=== PATIENT | male | born 1985 | race African-American/Black ===

== ENCOUNTER 2018-09-08 23:49 | Emergency (ER) | payer MEDICAID ==
[~2018-09-08] VITALS: Ht 172.7 cm; Wt 77.1 kg
[2018-09-08] MEDS ORDERED: KEPPRA1000 MG ORAL (23:55)
[2018-09-08] MEDS ORDERED: TRILEPTAL600 MG PO (23:56)
[2018-09-09] VITALS: BP 113/63
--- NOTE | 2018-09-09 00:08 | NUR ---
ED Nurse Note: Received report. Pt CARLA from street after claimimng to have seizure. Pt AAOx4, ambulatory, c/o headache 04/02. VSS. Pt says he is compliant with anti-seizure meds. Awaiting orders; will continue to monitor.
[2018-09-09 00:47] LABS: BASOPHILS % (AUTO) 1.4 % (0.0-2.0); EOSINOPHILS % (AUTO) 0.4 % (0.0-3.0); HEMATOCRIT 44.9 % (42.0-52.0); HEMOGLOBIN 15.2 G/DL (14.2-18.0); LYMPHOCYTES % (AUTO) 25.6 % (20.0-45.0); MEAN CORPUSCULAR VOLUME 91 FL (80-99); MONOCYTES % (AUTO) 10.5 % (1.0-10.0); NEUTROPHILS % (AUTO) 62.1 % (45.0-75.0); PLATELET COUNT 285 K/UL (150-450); RED BLOOD COUNT 4.95 M/UL (4.70-6.10); RED CELL DISTRIBUTION WIDTH 11.7 % (11.6-14.8); WHITE BLOOD COUNT 6.3 K/UL (4.8-10.8)
[2018-09-09 00:58] LABS: ANION GAP 7 mmol/L (5-15); BLOOD UREA NITROGEN 16 mg/dL (7-18); CALCIUM 8.9 MG/DL (8.5-10.1); CARBON DIOXIDE 28 MMOL/L (21-32); CHLORIDE 106 MMOL/L (98-107); CREATININE 1.2 MG/DL (0.55-1.30); POTASSIUM 3.8 MMOL/L (3.5-5.1); SODIUM 141 MMOL/L (136-145)
[2018-09-09 01:03] LABS: ALANINE AMINOTRANSFERASE 25 U/L (12-78); ALBUMIN 4.2 G/DL (3.4-5.0); ALBUMIN/GLOBULIN RATIO 1.2 (1.0-2.7); ALKALINE PHOSPHATASE 76 U/L (46-116); ASPARTATE AMINO TRANSFERASE 19 U/L (15-37); BILIRUBIN,TOTAL 0.2 MG/DL (0.2-1.0)
[2018-09-09 02:00] VITALS: BP 115/62
[2018-09-09] MEDS ORDERED: levETIRAcetam 1,000mg/NS100ml 100 ML IVPB ONE (02:00)
--- NOTE | 2018-09-09 02:10 | NUR ---
ED Nurse Note: Pt asleep, resting in bed. No distress noted. Will continue to monitor.
[2018-09-09] MEDS ORDERED: KEPPRA750 MG ORAL (02:32)
[2018-09-09 02:54] VITALS: BP 115/62
--- NOTE | 2018-09-09 04:59 | NUR ---
ED Nurse Note: Pt cleared for discharge. Pt now awake after resting, AAOx4. NAD. VSS. Ambulatory, given a jacket, water and list of free clinics although pt stated he sees PMD at [facility]. Pt states he has a safe place to go via bus. IV and ID band removed. Pt ambulated out with all belongings and prescriptions.
--- NOTE | 2018-10-12 22:56 | Emergency Room Report ---
History of Present Illness General Chief Complaint: General Complaint Source: Patient, EMS Present Illness HPI Patient is a 32-year-old male presented after increased seizure activity. Patient had recently been having seizures at home. He denies any recent fever. He reportedly had been taking Keppra 750 twice daily.Patient denies any abdominal pain. He had not been vomiting. Allergies: Coded Allergies: No Known Allergies (Unverified , 09/09/18) Patient History Past Medical History: see triage record Reviewed Nursing Documentation: PMH: Agreed; PSxH: Agreed Nursing Documentation-PMH Hx Seizures: Yes Review of Systems All Other Systems: negative except mentioned in HPI Physical Exam Sp02 EP Interpretation: reviewed, normal General Appearance: normal inspection, well appearing, no apparent distress, alert, GCS 15 Head: atraumatic ENT: normal ENT inspection, hearing grossly normal, normal voice Neck: normal inspection, full range of motion, supple, no bony tend Respiratory: normal inspection, lungs clear, normal breath sounds, no respiratory distress, no retraction, no wheezing Cardiovascular #1: regular rate, rhythm, no edema Gastrointestinal: normal inspection, normal bowel sounds, non tender, soft, no guarding, no hernia Genitourinary: no CVA tenderness Musculoskeletal: normal inspection, back normal, normal range of motion Neurologic: normal inspection, alert, oriented x3, responsive, community health worker III-XII nml as tested, speech normal Psychiatric: normal inspection, judgement/insight normal, mood/affect normal Skin: normal inspection, normal color, no rash Medical Decision Making Diagnostic Impression: Primary Impression: Seizure ER Course Patient presented for recent seizure. Differential diagnosis include was not limited to subtherapeutic anticonvulsant level, hyponatremia, among others. Because of complexity of patient's case laboratory testing and imaging studies were ordered. Patient's laboratory testing was unremarkable. He was givenPrescription for Keppra Patient states that he takes Keppra and Trileptal. Labs Test 09/09/18 00:30 White Blood Count 6.3 K/UL (4.8-10.8) Red Blood Count 4.95 M/UL (4.70-6.10) Hemoglobin 15.2 G/DL (14.2-18.0) Hematocrit 44.9 % (42.0-52.0) Mean Corpuscular Volume 91 FL (80-99) Mean Corpuscular Hemoglobin 30.7 PG (27.0-31.0) Mean Corpuscular Hemoglobin Concent 33.9 G/DL (32.0-36.0) Red Cell Distribution Width 11.7 % (11.6-14.8) Platelet Count 285 K/UL (150-450) Mean Platelet Volume 7.2 FL (6.5-10.1) Neutrophils (%) (Auto) 62.1 % (45.0-75.0) Lymphocytes (%) (Auto) 25.6 % (20.0-45.0) Monocytes (%) (Auto) 10.5 % (1.0-10.0) Eosinophils (%) (Auto) 0.4 % (0.0-3.0) Basophils (%) (Auto) 1.4 % (0.0-2.0) Sodium Level 141 MMOL/L (136-145) Potassium Level 3.8 MMOL/L (3.5-5.1) Chloride Level 106 MMOL/L (98-107) Carbon Dioxide Level 28 MMOL/L (21-32) Anion Gap 7 mmol/L (5-15) Blood Urea Nitrogen 16 mg/dL (7-18) Creatinine 1.2 MG/DL (0.55-1.30) Estimat Glomerular Filtration Rate > 60 mL/min (>60) Glucose Level 112 MG/DL (74-106) Calcium Level 8.9 MG/DL (8.5-10.1) Total Bilirubin 0.2 MG/DL (0.2-1.0) Aspartate Amino Transf (AST/SGOT) 19 U/L (15-37) Alanine Aminotransferase (ALT/SGPT) 25 U/L (12-78) Alkaline Phosphatase 76 U/L (46-116) Total Protein 7.8 G/DL (6.4-8.2) Albumin 4.2 G/DL (3.4-5.0) Globulin 3.6 g/dL Albumin/Globulin Ratio 1.2 (1.0-2.7) Status: improved Disposition: HOME, SELF-CARE Condition: Stable Scripts Levetiracetam (KEPPRA) 750 Mg Tablet 750 MG ORAL DAILY, #30 TAB Prov: Gonazlo Betancourt MD 09/09/18 Patient Instructions: Seizure, Adult Gonzalo Betancourt MD Oct 12, 2018 22:56
== END 2018-09-09 02:54 | disposition home or self-care (01) ==
LOC: EDBD 23:49 → EMR 09-09 00:20
DX: G40.909 Epilepsy, unspecified, not intractable, without status epilepticus (principal)
CPT/HCPCS: 36415; 80053; 82962; 85025; 96374; 99284; J1953

== ENCOUNTER 2018-10-17 08:49 | Emergency (ER) | payer MEDICAID ==
[~2018-10-17] VITALS: Ht 172.7 cm; Wt 75.3 kg
[2018-10-17 08:48] VITALS: BP 135/75
[~2018-10-17 08:49] MED LIST: KEPPRA1000 MG ORAL; KEPPRA500 M4 ORAL; KEPPRA750 MG ORAL; TRILEPTAL600 MG PO; VENTOLIN HFA18 GM INH
--- NOTE | 2018-10-17 08:55 | NUR ---
ED Nurse Note: patient was brought by RA from the street, per bypass people patient had 2 min seizure. he fell on the ground, hit his head while seizing on the ground, pt. has laceration oh his left forehead around 1cm length. No active bleeding eric. AAO x 3, skin is dry, intact, warm to touch. VSS at this time, pt. has nonlabored breathing, O2 sat is 96%. patient was connected to the monitor, seizure precautions applied. will continue to monitor
[2018-10-17] MEDS ORDERED: LaMICtal 150mg tab ORAL ONE (09:15)
[2018-10-17] MEDS ORDERED: Norco 5mg/325mg tab ORAL ONE (09:15)
--- NOTE | 2018-10-17 09:18 | Emergency Room Report ---
History of Present Illness General Chief Complaint: Seizure Source: Patient, EMS Present Illness HPI 32-year-old male status post seizure and his brother's car. Complains of a headache. He states he gets breakthrough seizures. He did not take his Lamictal or Keppra this morning. He states that he is usually compliant. He states that he gets occasional breakthrough seizures every few months. He states he had a brief loss of consciousness. Allergies: Coded Allergies: No Known Allergies (Unverified , 09/09/18) Patient History Past Medical History: none Nursing Documentation-PMH Hx Seizures: Yes Review of Systems All Other Systems: negative except mentioned in HPI Physical Exam Vital Signs Date Time Temp Pulse Resp B/P (MAP) Pulse Ox O2 Delivery O2 Flow Rate FiO2 10/17/18 08:38 98.4 90 18 128/94 98 Room Air Head: normocephalic, atraumatic ENT: hearing grossly normal, normal voice Neck: full range of motion, supple Respiratory: no respiratory distress, speaking full sentences Musculoskeletal: other - patient with chronic right shoulder pain. Neurologic: alert, oriented x3, pattern fitter III-XII nml as tested Medical Decision Making Diagnostic Impression: Primary Impression: Epileptic seizure, generalized ER Course Patient was examined multiple times. The patient has no headache at this time. He was given pain medication. He is neurologically intact. He does have decreased range of motion the right shoulder which she is due for surgery in November. The patient is currently at baseline. He does have Lamictal and Keppra. And he does not require any prescriptions. The patient will be discharged home. EKG Diagnostic Results EKG Time: 09:26 Rate: normal Rhythm: NSR ST Segments: no acute changes ASA given to the pt in ED: No Last Vital Signs Date Time Temp Pulse Resp B/P (MAP) Pulse Ox O2 Delivery O2 Flow Rate FiO2 10/17/18 08:48 74 20 Room Air 10/17/18 08:48 98.0 135/75 96 Status: improved Disposition: HOME, SELF-CARE Condition: Stable Patient Instructions: Seizure, Adult LOLLY LUNA Oct 17, 2018 09:18
[2018-10-17 11:09] VITALS: BP 136/85
--- NOTE | 2018-10-17 11:35 | NUR ---
ED Nurse Note: Pt urinated without difficulty at this time. Laying comfortably on bed. VSS, no sign of acute distress.
--- NOTE | 2018-10-17 11:54 | NUR ---
ED Nurse Note: RN called taxi voucher for pt.
[2018-10-17 11:56] VITALS: BP 125/80
--- NOTE | 2018-10-17 11:59 | NUR ---
ED Nurse Note: patient was DC home, ambulatory, VSS at this time, patient has nonlabored respiration, AAO x 4, all belongings were given to the patient. patient was educated, verbalized understanding.
== END 2018-10-17 11:56 | disposition home or self-care (01) ==
LOC: EDBD 08:49 → EMR 09:00
DX: G40.409 Other generalized epilepsy and epileptic syndromes, not intractable, without status epilepticus (principal); Z91.14 Patient's other noncompliance with medication regimen
CPT/HCPCS: 80299; 99283

== ENCOUNTER 2018-12-05 06:25 | Inpatient (IN) | payer MEDICAID ==
[~2018-12-05] VITALS: Ht 175.3 cm; Wt 90.7 kg
[2018-12-05 06:27] VITALS: BP 131/82
[2018-12-05] MEDS ORDERED: levETIRAcetam 500 MG in D5W 110 ML IV ONE (06:30)
--- NOTE | 2018-12-05 06:42 | Emergency Room Report ---
History of Present Illness General Chief Complaint: Seizure Source: Patient Present Illness HPI Patient is a 33-year-old male brought in by EMS after a witnessed seizure. Patient prior history of seizure disorder. Patient reports taking Keppra 1500 mg twice a day. He states he took his normal dose last night. Patient reports having a mild headache consistent with his previous. He states he has similar headaches after seizures usually. He states he normally has a seizure once a month. He denies any fever. He denies any recent illness. Allergies: Coded Allergies: No Known Allergies (Unverified , 09/09/18) Patient History Past Medical History: see triage record Reviewed Nursing Documentation: PMH: Agreed; PSxH: Agreed Nursing Documentation-PMH Hx Seizures: Yes Review of Systems All Other Systems: negative except mentioned in HPI Physical Exam Vital Signs Date Time Temp Pulse Resp B/P (MAP) Pulse Ox O2 Delivery O2 Flow Rate FiO2 12/05/18 06:26 98.8 100 18 151/72 98 Room Air Sp02 EP Interpretation: reviewed, normal General Appearance: normal inspection, well appearing, no apparent distress, alert, GCS 15, non-toxic Head: atraumatic ENT: normal ENT inspection, hearing grossly normal, normal voice Neck: normal inspection, full range of motion, supple, no bony tend Respiratory: normal inspection, lungs clear, normal breath sounds, no respiratory distress, no retraction, no wheezing Cardiovascular #1: regular rate, rhythm, no edema Gastrointestinal: normal inspection, normal bowel sounds, non tender, soft, no guarding, no hernia Genitourinary: no CVA tenderness Musculoskeletal: normal inspection, back normal, normal range of motion Neurologic: normal inspection, alert, oriented x3, responsive, meat hostess III-XII nml as tested, speech normal Psychiatric: normal inspection, judgement/insight normal, mood/affect normal Skin: normal inspection, normal color, no rash Medical Decision Making Diagnostic Impression: Primary Impression: Seizure Additional Impression: Seizure disorder ER Course Patient presented for seizure. Differential diagnosis included electrolyte abnormality, alcohol withdrawal, medication noncompliance, neurocysticercosis, electrolyte abnormality, mass lesion, intracranial hemorrhage among others.Patient's laboratory testing was notable for metabolic acidosis consistent with recent seizure. Patient was noted to have reportedly been compliant with his medications. He was loaded with IV Keppra.Patient with had witnessed episode of convulsions in the emergency department. Patient was noted to have some postictal agitation and was placed in restraints and was given IV Ativan.Patient was noted to have urinated during the seizure. Patient was noted to have some change to a cardiac rhythm during a seizure activity. These appear to be perfusing rhythm. DMV report will be made due to patient's recent convulsions. Dr. Mario Harris was contacted for inpatient management. Labs Test 12/05/18 06:40 White Blood Count 8.3 K/UL (4.8-10.8) Red Blood Count 5.16 M/UL (4.70-6.10) Hemoglobin 15.3 G/DL (14.2-18.0) Hematocrit 48.3 % (42.0-52.0) Mean Corpuscular Volume 94 FL (80-99) Mean Corpuscular Hemoglobin 29.7 PG (27.0-31.0) Mean Corpuscular Hemoglobin Concent 31.7 G/DL (32.0-36.0) Red Cell Distribution Width 12.6 % (11.6-14.8) Platelet Count 274 K/UL (150-450) Mean Platelet Volume 6.6 FL (6.5-10.1) Neutrophils (%) (Auto) 39.6 % (45.0-75.0) Lymphocytes (%) (Auto) 50.0 % (20.0-45.0) Monocytes (%) (Auto) 6.8 % (1.0-10.0) Eosinophils (%) (Auto) 2.1 % (0.0-3.0) Basophils (%) (Auto) 1.5 % (0.0-2.0) Urine Color Pale yellow Urine Appearance Clear Urine pH 5 (4.5-8.0) Urine Specific [place] 1.015 (1.005-1.035) Urine Protein 2+ (NEGATIVE) Urine Glucose (UA) Negative (NEGATIVE) Urine Ketones Negative (NEGATIVE) Urine Blood 2+ (NEGATIVE) Urine Nitrite Negative (NEGATIVE) Urine Bilirubin Negative (NEGATIVE) Urine Urobilinogen Normal MG/DL (0.0-1.0) Urine Leukocyte Esterase Negative (NEGATIVE) Urine RBC 0-2 /HPF (0 - 0) Urine WBC 0 /HPF (0 - 0) Urine Squamous Epithelial Cells Occasional /LPF Urine Bacteria Occasional /HPF (NONE) Sodium Level 139 MMOL/L (136-145) Potassium Level 3.8 MMOL/L (3.5-5.1) Chloride Level 103 MMOL/L (98-107) Carbon Dioxide Level 18 MMOL/L (21-32) Anion Gap 18 mmol/L (5-15) Blood Urea Nitrogen 13 mg/dL (7-18) Creatinine 1.3 MG/DL (0.55-1.30) Estimat Glomerular Filtration Rate > 60 mL/min (>60) Glucose Level 119 MG/DL (74-106) Calcium Level 8.4 MG/DL (8.5-10.1) Total Bilirubin 0.3 MG/DL (0.2-1.0) Aspartate Amino Transf (AST/SGOT) 14 U/L (15-37) Alanine Aminotransferase (ALT/SGPT) 23 U/L (12-78) Alkaline Phosphatase 69 U/L (46-116) Troponin I 0.002 ng/mL (0.000-0.056) Total Protein 7.8 G/DL (6.4-8.2) Albumin 4.1 G/DL (3.4-5.0) Globulin 3.7 g/dL Albumin/Globulin Ratio 1.1 (1.0-2.7) Urine Opiates Screen Negative (NEGATIVE) Urine Barbiturates Screen Negative (NEGATIVE) Phencyclidine (PCP) Screen Negative (NEGATIVE) Urine Amphetamines Screen Negative (NEGATIVE) Urine Benzodiazepines Screen Negative (NEGATIVE) Urine Cocaine Screen Negative (NEGATIVE) Urine Marijuana (THC) Screen Positive (NEGATIVE) EKG Diagnostic Results Rate: normal - 74 Rhythm: NSR ST Segments: no acute changes Last Vital Signs Date Time Temp Pulse Resp B/P (MAP) Pulse Ox O2 Delivery O2 Flow Rate FiO2 12/05/18 06:26 98.8 100 18 151/72 98 Room Air Status: improved Disposition: ADMITTED INPATIENT Condition: Gonzalo Jimenez MD Dec 05, 2018 06:42
[2018-12-05] MEDS ORDERED: levETIRAcetam 1,000mg/NS100ml 100 ML IVPB ONE (06:45)
[2018-12-05] MEDS ORDERED: levETIRAcetam 500mg/NS100ml 100 ML IVPB ONE (06:45)
[2018-12-05 06:56] LABS: APPEARANCE,URINE CLEAR; BILIRUBIN, URINE NEGATIVE (NEGATIVE); COLOR,URINE PALE YELLOW; GLUCOSE, URINE (UA) NEGATIVE (NEGATIVE); KETONES,URINE NEGATIVE (NEGATIVE); LEUKOCYTE ESTERASE ,URINE NEGATIVE (NEGATIVE); NITRITE,URINE NEGATIVE (NEGATIVE); PH,URINE 5 (4.5-8.0); PROTEIN,URINE 2+ (NEGATIVE); UROBILINOGEN,URINE NORMAL MG/DL (0.0-1.0)
[2018-12-05 07:00] LABS: BASOPHILS % (AUTO) 1.5 % (0.0-2.0); EOSINOPHILS % (AUTO) 2.1 % (0.0-3.0); HEMATOCRIT 48.3 % (42.0-52.0); HEMOGLOBIN 15.3 G/DL (14.2-18.0); MEAN CORPUSCULAR VOLUME 94 FL (80-99); MONOCYTES % (AUTO) 6.8 % (1.0-10.0); NEUTROPHILS % (AUTO) 39.6 % (45.0-75.0); PLATELET COUNT 274 K/UL (150-450); RED BLOOD COUNT 5.16 M/UL (4.70-6.10); RED CELL DISTRIBUTION WIDTH 12.6 % (11.6-14.8); WHITE BLOOD COUNT 8.3 K/UL (4.8-10.8)
[2018-12-05 07:03] LABS: ANION GAP 18 mmol/L (5-15); BLOOD UREA NITROGEN 13 mg/dL (7-18); CALCIUM 8.4 MG/DL (8.5-10.1); CARBON DIOXIDE 18 MMOL/L (21-32); CHLORIDE 103 MMOL/L (98-107); CREATININE 1.3 MG/DL (0.55-1.30); POTASSIUM 3.8 MMOL/L (3.5-5.1); SODIUM 139 MMOL/L (136-145)
[2018-12-05 07:10] LABS: ALANINE AMINOTRANSFERASE 23 U/L (12-78); ALBUMIN 4.1 G/DL (3.4-5.0); ALBUMIN/GLOBULIN RATIO 1.1 (1.0-2.7); ALKALINE PHOSPHATASE 69 U/L (46-116); ASPARTATE AMINO TRANSFERASE 14 U/L (15-37); BILIRUBIN,TOTAL 0.3 MG/DL (0.2-1.0)
[2018-12-05] MEDS ORDERED: LORazepam Inj 2mg/ml 1ml ONE (08:05)
[2018-12-05] MEDS ORDERED: LORazepam Inj 2mg/ml 1ml IV ONE (08:15)
[2018-12-05 08:45] VITALS: BP 112/59
[2018-12-05 11:05] VITALS: BP 143/90
[2018-12-05 12:00] VITALS: BP 135/83
[2018-12-05] MEDS ORDERED: LORazepam Inj 2mg/ml 1ml IV PRN (12:15)
[2018-12-05 16:00] VITALS: BP 126/66
--- NOTE | 2018-12-05 18:19 | History & Physical ---
History and Physical History & Physicial History and Physical HPI Patient is a 33-year-old male admitted after a witnessed seizure. Patient prior history of seizure disorder. Patient reports taking Keppra 500 mg twice a day. He states he took his normal dose last night. Patient reports having a mild headache consistent with his previous. He states he has similar headaches after seizures usually. He states he normally has a seizure once a month. He denies any fever. He denies any recent illness. Allergies: No Known Allergies Past Medical History: Seizures All Other Systems: negative except mentioned in HPI Physical Exam Vital Signs Noted Date Time Temp Pulse Resp B/P (MAP) Pulse Ox O2 Delivery O2 Flow Rate FiO2 12/05/18 06:26 98.8 100 18 151/72 98 Room Air General Appearance: normal inspection, well appearing, no apparent distress, alert, GCS 15, non-toxic Head: atraumatic ENT: normal ENT inspection, hearing grossly normal, normal voice Neck: normal inspection, full range of motion, supple, no bony tend Respiratory: normal inspection, lungs clear, normal breath sounds, no respiratory distress, no retraction, no wheezing Cardiovascular: HS1, HS2, egular rate, rhythm, no edema Gastrointestinal: normal inspection, normal bowel sounds, non tender, soft, no guarding, no hernia Genitourinary: no CVA tenderness Musculoskeletal: normal inspection, back normal, normal range of motion Neurologic: normal inspection, alert, oriented x3, responsive, elevator technician III-XII nml as tested, speech normal Psychiatric: normal inspection, judgement/insight normal, mood/affect normal Skin: normal inspection, normal color, no rash Impression: Seizure Plan PRN Ativan SP Keppra load in ER STAND UP COMEDIAN Medications CT Head PPX Seizure precautions PRN O2 Labs Test 12/05/18 06:40 White Blood Count 8.3 K/UL (4.8-10.8) Red Blood Count 5.16 M/UL (4.70-6.10) Hemoglobin 15.3 G/DL (14.2-18.0) Hematocrit 48.3 % (42.0-52.0) Mean Corpuscular Volume 94 FL (80-99) Mean Corpuscular Hemoglobin 29.7 PG (27.0-31.0) Mean Corpuscular Hemoglobin Concent 31.7 G/DL (32.0-36.0) Red Cell Distribution Width 12.6 % (11.6-14.8) Platelet Count 274 K/UL (150-450) Mean Platelet Volume 6.6 FL (6.5-10.1) Neutrophils (%) (Auto) 39.6 % (45.0-75.0) Lymphocytes (%) (Auto) 50.0 % (20.0-45.0) Monocytes (%) (Auto) 6.8 % (1.0-10.0) Eosinophils (%) (Auto) 2.1 % (0.0-3.0) Basophils (%) (Auto) 1.5 % (0.0-2.0) Urine Color Pale yellow Urine Appearance Clear Urine pH 5 (4.5-8.0) Urine Specific [place] 1.015 (1.005-1.035) Urine Protein 2+ (NEGATIVE) Urine Glucose (UA) Negative (NEGATIVE) Urine Ketones Negative (NEGATIVE) Urine Blood 2+ (NEGATIVE) Urine Nitrite Negative (NEGATIVE) Urine Bilirubin Negative (NEGATIVE) Urine Urobilinogen Normal MG/DL (0.0-1.0) Urine Leukocyte Esterase Negative (NEGATIVE) Urine RBC 0-2 /HPF (0 - 0) Urine WBC 0 /HPF (0 - 0) Urine Squamous Epithelial Cells Occasional /LPF Urine Bacteria Occasional /HPF (NONE) Sodium Level 139 MMOL/L (136-145) Potassium Level 3.8 MMOL/L (3.5-5.1) Chloride Level 103 MMOL/L (98-107) Carbon Dioxide Level 18 MMOL/L (21-32) Anion Gap 18 mmol/L (5-15) Blood Urea Nitrogen 13 mg/dL (7-18) Creatinine 1.3 MG/DL (0.55-1.30) Estimat Glomerular Filtration Rate > 60 mL/min (>60) Glucose Level 119 MG/DL (74-106) Calcium Level 8.4 MG/DL (8.5-10.1) Total Bilirubin 0.3 MG/DL (0.2-1.0) Aspartate Amino Transf (AST/SGOT) 14 U/L (15-37) Alanine Aminotransferase (ALT/SGPT) 23 U/L (12-78) Alkaline Phosphatase 69 U/L (46-116) Troponin I 0.002 ng/mL (0.000-0.056) Total Protein 7.8 G/DL (6.4-8.2) Albumin 4.1 G/DL (3.4-5.0) Globulin 3.7 g/dL Albumin/Globulin Ratio 1.1 (1.0-2.7) Urine Opiates Screen Negative (NEGATIVE) Urine Barbiturates Screen Negative (NEGATIVE) Phencyclidine (PCP) Screen Negative (NEGATIVE) Urine Amphetamines Screen Negative (NEGATIVE) Urine Benzodiazepines Screen Negative (NEGATIVE) Urine Cocaine Screen Negative (NEGATIVE) Urine Marijuana (THC) Screen Positive (NEGATIVE) EKG: Rate: normal - 74 Rhythm: NSR ST Segments: no acute changes Carlos Lemus MD Dec 05, 2018 18:19
[2018-12-05 20:00] VITALS: BP 123/71
[2018-12-06 04:00] VITALS: BP 154/65
[2018-12-06 06:52] LABS: BASOPHILS % (AUTO) 0.6 % (0.0-2.0); EOSINOPHILS % (AUTO) 0.1 % (0.0-3.0); HEMATOCRIT 45.7 % (42.0-52.0); HEMOGLOBIN 15.1 G/DL (14.2-18.0); LYMPHOCYTES % (AUTO) 12.1 % (20.0-45.0); MEAN CORPUSCULAR VOLUME 92 FL (80-99); MONOCYTES % (AUTO) 4.4 % (1.0-10.0); NEUTROPHILS % (AUTO) 82.7 % (45.0-75.0); PLATELET COUNT 227 K/UL (150-450); RED BLOOD COUNT 4.98 M/UL (4.70-6.10); RED CELL DISTRIBUTION WIDTH 12.5 % (11.6-14.8); WHITE BLOOD COUNT 16.6 K/UL (4.8-10.8)
[2018-12-06 07:08] LABS: ANION GAP 10 mmol/L (5-15); BLOOD UREA NITROGEN 14 mg/dL (7-18); CALCIUM 9.1 MG/DL (8.5-10.1); CARBON DIOXIDE 27 MMOL/L (21-32); CHLORIDE 101 MMOL/L (98-107); POTASSIUM 3.7 MMOL/L (3.5-5.1); SODIUM 137 MMOL/L (136-145)
[2018-12-06 08:00] VITALS: BP 149/93
--- NOTE | 2018-12-06 08:19 | General Progress Note ---
Assessment/Plan Status Narrative sz do marijuana use leukocytosis PLAN care noted seizure meds consider ID evaluation unclear as to etiology of increase in wbc impression, plan, and exam edited and reviewed in detail care discussed with RN Subjective Allergies: Coded Allergies: No Known Allergies (Unverified , 09/09/18) Subjective care noted and reviewed Objective Last 24 Hour Vital Signs Date Time Temp Pulse Resp B/P (MAP) Pulse Ox O2 Delivery O2 Flow Rate FiO2 12/06/18 04:00 96.5 65 20 154/65 (94) 97 12/06/18 03:34 52 12/05/18 23:28 59 12/05/18 21:00 Room Air 12/05/18 20:00 98.0 65 20 123/71 (88) 97 12/05/18 19:44 74 12/05/18 16:00 98.8 81 20 126/66 (86) 97 12/05/18 16:00 76 12/05/18 13:39 99.8 12/05/18 12:32 Room Air 12/05/18 12:00 102 12/05/18 12:00 101.3 98 20 135/83 (100) 94 12/05/18 11:05 97 12/05/18 11:05 101.6 103 21 143/90 (107) 98 12/05/18 11:00 98.6 97 20 120/68 95 Room Air 12/05/18 08:45 98.0 85 18 112/59 98 Room Air Intake and Output 12/05/18 12/06/18 19:00 07:00 Intake Total 0 ml Output Total 0 ml 2 ml Balance 0 ml -2 ml Intake Oral 0 ml Output Urine Total 0 ml 2 ml Laboratory Tests 12/06/18 05:59: White Blood Count 16.6#H, Red Blood Count 4.98, Hemoglobin 15.1, Hematocrit 45.7 , Mean Corpuscular Volume 92, Mean Corpuscular Hemoglobin 30.4, Mean Corpuscular Hemoglobin Concent 33.1, Red Cell Distribution Width 12.5, Platelet Count 227, Mean Platelet Volume 6.6, Neutrophils (%) (Auto) 82.7H, Lymphocytes ( %) (Auto) 12.1L, Monocytes (%) (Auto) 4.4, Eosinophils (%) (Auto) 0.1, Basophils (%) (Auto) 0.6, Sodium Level 137, Potassium Level 3.7, Chloride Level 101, Carbon Dioxide Level 27, Anion Gap 10, Blood Urea Nitrogen 14, Creatinine 1.0, Estimat Glomerular Filtration Rate > 60, Glucose Level 92, Calcium Level 9.1, Levetiracetam (Keppra) Level [Pending] Height (Feet): 5 Height (Inches): 9.00 Weight (Pounds): 200 Objective WDWN NAD clear breath sounds bilaterally without rhonchi or wheeze [id number] without MRG NABS nontender no HSM no CCE nonfocal Mario Harris MD Dec 06, 2018 08:19
--- NOTE | 2018-12-06 09:50 | Diagnostic Imaging Report ---
Indications: Seizures Technique: Spiral acquisitions obtained through the brain. Angled axial and coronal 5 x 5 mm slices were reconstructed. Total dose length product 1362.01 mGycm. CTDI vol(s) 70.38 mGy. Dose reduction achieved using automated exposure control Comparison: None. Findings: No acute intracranial hemorrhage or edema. No mass effect nor midline shift. Normal knight-white differentiation. Normal-sized ventricles and extra-axial CSF spaces. The orbits and sinuses are unremarkable. The calvarium is intact. The mastoids are clear. Impression: Negative This agrees with the preliminary interpretation provided overnight by [facility] teleradiology service. The CT scanner at [facility] is accredited by the [employer] and the scans are performed using protocols designed to limit radiation exposure to as low as reasonably achievable to attain images of sufficient resolution adequate for diagnostic evaluation.
[2018-12-06] MEDS: OXcarbazepine 150mg tab ORAL SCH ×2 (09:54→20:26)
--- NOTE | 2018-12-06 10:39 | Diagnostic Imaging Report ---
Indication: Chest pain Technique: One view of the chest Comparison: none Findings: Lungs and pleural spaces are clear. Heart size is normal Impression: No acute process This agrees with the preliminary interpretation provided by the emergency room physician
[2018-12-06 12:00] VITALS: BP 125/64
[2018-12-06 16:00] VITALS: BP 130/73
[2018-12-06 20:00] VITALS: BP 126/69
--- NOTE | 2018-12-06 20:30 | Consultation ---
DATE OF CONSULTATION: 12/06/2018 INFECTIOUS DISEASES CONSULTATION This consult is for coverage of Dr. Gee. CONSULTING PHYSICIAN: Josue Crow M.D. PRIMARY ATTENDING PHYSICIAN: Mario Harris M.D. REASON FOR CONSULTATION: Fever and leukocytosis. HISTORY OF PRESENT ILLNESS: This is a 33-year-old male admitted yesterday after seizure activity. The patient has history of seizure disorder since 2008. He is getting Keppra at home. At the time of the seizure, he usually walks out of the home and does not remember what happens, has incontinency of urine at time of seizure. He had fever of 101.6 last night, had leukocytosis of 16.6 this morning. PAST MEDICAL HISTORY: Significant for seizure disorder, right shoulder fracture x2, he states he needs surgery. ALLERGIES: No known drug allergies. MEDICATIONS: Getting Trileptal, Keppra, lorazepam, Tylenol, and Zofran. SOCIAL HISTORY: Smokes marijuana but did not smoke for 2 weeks. Denies alcohol and drug abuse. Single, has 3 children. REVIEW OF SYSTEMS: Usually develop headache after the seizure activity. Denies coughing, nausea, vomiting. Skin scratch in the right elbow that is related to seizure, has urinary incontinence at the time of seizure. PHYSICAL EXAMINATION: VITAL SIGNS: Temperature 96.5, pulse 65,. GENERAL APPEARANCE: No acute distress, well developed. HEAD AND NECK: [place] conjunctiva. No oral lesion. HEART: Normal rate. LUNGS: Clear ABDOMEN: Soft and nontender. EXTREMITIES: No edema. NEUROLOGIC: Awake, alert, oriented x3. LABORATORY AND DIAGNOSTIC DATA: WBC 16.6, hemoglobin 15.1, hematocrit 45.7, and platelets is 227. Sodium 137, potassium 3.7, chloride 101, bicarbonate 27, BUN 14, creatinine 1. Urine toxicology was positive for marijuana. UA showed wbc's of 0. Chest x-ray was not done. IMPRESSION: Fever and leukocytosis, may be part of systemic inflammatory response syndrome secondary to breakthrough seizure. We will try to rule out aspiration pneumonia. The patient also has history of marijuana use and right shoulder fracture, that states he needs another surgery. RECOMMENDATION: We will ask for chest x-ray. If the patient have consistent fever and leukocytosis, we will start on antibiotics. At the end of my exam, I thank Dr. Harris, for involving me in the care of this patient. Josue Crow M.D. DR: Josi JOB#: [id number] CC: VERNA
[2018-12-07] VITALS: BP 134/62
[2018-12-07 04:00] VITALS: BP 120/61
--- NOTE | 2018-12-07 07:57 | General Progress Note ---
Assessment/Plan Assessment: seizure do leukocytosis PLAN dc home recheck cbc d/w ID impression, plan, and exam edited and reviewed in detail care discussed with RN Subjective Allergies: Coded Allergies: No Known Allergies (Unverified , 09/09/18) Subjective care noted and reviewed Objective Last 24 Hour Vital Signs Date Time Temp Pulse Resp B/P (MAP) Pulse Ox O2 Delivery O2 Flow Rate FiO2 12/07/18 04:00 98.9 49 18 120/61 (80) 98 12/07/18 04:00 48 12/07/18 00:00 54 12/07/18 00:00 98.7 54 19 134/62 (86) 100 12/06/18 21:00 Room Air 12/06/18 20:00 99.6 51 18 126/69 (88) 96 12/06/18 20:00 51 12/06/18 16:00 99.6 54 20 130/73 (92) 97 12/06/18 16:00 53 12/06/18 12:00 99.1 47 20 125/64 (84) 100 12/06/18 12:00 48 12/06/18 09:00 Room Air 12/06/18 08:00 98.9 93 22 149/93 (111) 98 12/06/18 08:00 47 Intake and Output 12/06/18 12/07/18 19:00 07:00 Output Total 1600 ml 700 ml Balance -1600 ml -700 ml Output Urine Total 1600 ml 700 ml # Voids 3 Height (Feet): 5 Height (Inches): 9.00 Weight (Pounds): 200 Objective WDWN NAD clear breath sounds bilaterally without rhonchi or wheeze [id number] without MRG NABS nontender no HSM no CCE nonfocal Mario Harris MD Dec 07, 2018 07:57
[2018-12-07 08:00] VITALS: BP 144/76
[2018-12-07] MEDS: OXcarbazepine 150mg tab ORAL SCH (08:32)
[2018-12-07 09:21] LABS: BASOPHILS % (AUTO) 0.7 % (0.0-2.0); EOSINOPHILS % (AUTO) 0.7 % (0.0-3.0); HEMATOCRIT 45.5 % (42.0-52.0); HEMOGLOBIN 15.1 G/DL (14.2-18.0); LYMPHOCYTES % (AUTO) 26.3 % (20.0-45.0); MEAN CORPUSCULAR VOLUME 91 FL (80-99); MONOCYTES % (AUTO) 8.7 % (1.0-10.0); NEUTROPHILS % (AUTO) 63.6 % (45.0-75.0); PLATELET COUNT 251 K/UL (150-450); RED BLOOD COUNT 5.03 M/UL (4.70-6.10); RED CELL DISTRIBUTION WIDTH 12.1 % (11.6-14.8); WHITE BLOOD COUNT 9.9 K/UL (4.8-10.8)
--- NOTE | 2018-12-07 10:41 | Infectious Diseases Prog Note ---
Assessment/Plan Assessment/Plan antibiotics : none A 1. leucocytosis resolved 2. seizures P 1. continue off antibiotics Subjective Constitutional: Denies: fever, chills Respiratory: Denies: shortness of breath, dry cough Gastrointestinal/Abdominal: Denies: nausea, vomiting, diarrhea Musculoskeletal: Denies: pain Allergies: Coded Allergies: No Known Allergies (Unverified , 09/09/18) Objective Vital Signs Last 24 Hour Vital Signs Date Time Temp Pulse Resp B/P (MAP) Pulse Ox O2 Delivery O2 Flow Rate FiO2 12/07/18 09:00 Room Air 12/07/18 08:00 46 12/07/18 08:00 98.2 51 18 144/76 (98) 97 12/07/18 04:00 98.9 49 18 120/61 (80) 98 12/07/18 04:00 48 12/07/18 00:00 54 12/07/18 00:00 98.7 54 19 134/62 (86) 100 12/06/18 21:00 Room Air 12/06/18 20:00 99.6 51 18 126/69 (88) 96 12/06/18 20:00 51 12/06/18 16:00 99.6 54 20 130/73 (92) 97 12/06/18 16:00 53 12/06/18 12:00 99.1 47 20 125/64 (84) 100 12/06/18 12:00 48 Height (Feet): 5 Height (Inches): 9.00 Weight (Pounds): 200 Respiratory/Chest: lungs clear Cardiovascular: normal rate, regular rhythm, no gallop/murmur Abdomen: soft, non tender Extremities: no edema Laboratory Tests Test 12/07/18 08:45 White Blood Count 9.9 K/UL (4.8-10.8) Red Blood Count 5.03 M/UL (4.70-6.10) Hemoglobin 15.1 G/DL (14.2-18.0) Hematocrit 45.5 % (42.0-52.0) Mean Corpuscular Volume 91 FL (80-99) Mean Corpuscular Hemoglobin 30.1 PG (27.0-31.0) Mean Corpuscular Hemoglobin Concent 33.2 G/DL (32.0-36.0) Red Cell Distribution Width 12.1 % (11.6-14.8) Platelet Count 251 K/UL (150-450) Mean Platelet Volume 6.7 FL (6.5-10.1) Neutrophils (%) (Auto) 63.6 % (45.0-75.0) Lymphocytes (%) (Auto) 26.3 % (20.0-45.0) Monocytes (%) (Auto) 8.7 % (1.0-10.0) Eosinophils (%) (Auto) 0.7 % (0.0-3.0) Basophils (%) (Auto) 0.7 % (0.0-2.0) Current Medications Medications (Trade) Dose Ordered Sig/Verena Route PRN Reason Start Time Stop Time Status Last Admin Dose Admin Acetaminophen (Tylenol) 650 mg Q6H PRN ORAL Mild Pain/Temp > 100.5 12/05/18 12:15 01/04/19 12:14 12/05/18 13:09 Levetiracetam (Keppra) 750 mg Q12HR ORAL 12/05/18 21:00 01/04/19 20:59 12/07/18 08:32 Lorazepam (Ativan 2mg/ml 1ml) 1 mg Q4H PRN IV For Seizure 12/05/18 12:15 12/12/18 12:14 Ondansetron HCl (Zofran) 4 mg Q8H PRN IVP Nausea & Vomiting 12/05/18 12:15 01/04/19 12:14 Oxcarbazepine (Trileptal) 150 mg EVERY 12 HOURS ORAL 12/06/18 09:45 01/05/19 09:44 12/07/18 08:32 Monika Gee MD Dec 07, 2018 10:41
--- NOTE | 2018-12-07 18:24 | Cardiology Report ---
APPROVED REPORT EKG Measurement Heart [id number] Normal sinus rhythm with sinus arrhythmia Minimal voltage criteria for LVH, may be normal variant Borderline ECG
--- NOTE | 2018-12-13 13:04 | Discharge Summary ---
Discharge Summary Discharge Summary _ DATE OF ADMISSION: 12/05/2018 DATE OF DISCHARGE: 12/07/2018 DISCHARGED BY: Dr. Harris REASON FOR ADMISSION: 33 years old male with past medical history of seizure disorder, brought by by ambulatory nurse after witnessed seizure. Patient reported compliance with medication regimen. Keppra level was subtherapeutic. Patient reported mild headache . Patient reported similar headaches after seizure episodes usually. Patient usually had seizure episode once a month. He denied any fever or chills. He denied any recent illness . Upon evaluation vital signs were stable . CT of the head revealed no acute intracranial pathology. Chest x-ray revealed no acute cardiopulmonary pathology. EKG revealed normal sinus rhythm no acute ischemic changes. Troponin negative. Laboratory workup revealed no leukocytosis, stable hemoglobin and hematocrit, stable renal parameters and electrolytes. Urinalysis revealed no evidence of urinary tract infection. Urine toxicology screen was positive for marijuana. In emergency department patient was loaded with IV Keppra . patient had another witnessed episode of convulsion in the emergency department. Patient had postictal agitation and received IV Ativan . Patient was subsequently admitted for further management. DMV report was filed due to patient's recent convulsion. CONSULTANTS: ID specialist Dr. Gee [facility] COURSE: Patient admitted to monitored floor. Seizure precautions were maintained. Patient was on Keppra and Trileptal. Ativan was on board as needed for breakthrough seizure. Supplemental oxygen provided as needed to keep pulse oximetry above 92%. The next day noted leukocytosis WBC 16.6. No fevers. ID consult was requested. Prior urinalysis and CXR revealed no evidence of UTI. No obvious evidence of infection. ID specialist recommended to keep patient off antibiotics. Leukocytosis resolved the next day , likely was reactive. No further seizure activity. Symptomatic treatment provided. Patient to follow-up with his neurologist as outpatient . Patient was instructed on importance of compliance with medication regimen. FINAL DIAGNOSES: Seizure breakthrough episode Seizure disorder Leukocytosis resolved Marijuana use DISCHARGE MEDICATIONS: See Medication Reconciliation list. DISCHARGE INSTRUCTIONS: Patient was discharged home . Follow up with primary care provider in one week. I have been assigned to dictate discharge summary for this account. I was not involved in the patient's management. Margariat Caraballo NP Dec 13, 2018 13:04
== END 2018-12-07 11:55 | disposition home or self-care (01) | DRG 53 ==
LOC: EDBD 06:25 → EDUNIT# 06:25 → EMR 07:20 → EDBEDREQ 08:22 → 2E 10:42
DX: G40.909 Epilepsy, unspecified, not intractable, without status epilepticus (principal); F12.90 Cannabis use, unspecified, uncomplicated
CPT/HCPCS: 36415; 70450; 71045; 80048; 80053; 80299; 80307; 81003; 82962; 84484; 85025; 93005; 96361; 96374; 96375; 96376; 99285

== ENCOUNTER 2019-03-12 12:04 | Emergency (ER) | payer MEDICAID ==
[~2019-03-12] VITALS: Ht 172.7 cm; Wt 83.9 kg
[2019-03-12] MEDS ORDERED: TRILEPTAL300 MG PO (12:10)
--- NOTE | 2019-03-12 12:10 | Emergency Room Report ---
History of Present Illness General Chief Complaint: Seizure Present Illness HPI 33 year old male hx of epilepsy presents with seizure tonic-clonic witnessed by brother just prior to arrival, who protected him while he was having his seizure , no head trauma, patient had a dose change from 900 mg twice daily of Trileptal to 600 mg twice daily, he denies any chest pain, shortness of breath, abdominal pain, patient states he has to urinate, patient is back to baseline. He states his seizures are aggravated by not taking his medications, alleviated by taking his medications, he denies any current pain. Allergies: Coded Allergies: No Known Allergies (Unverified , 09/09/18) Patient History Past Medical History: see triage record Social History: Reports: drug use - Marijuana Reviewed Nursing Documentation: PMH: Agreed; PSxH: Agreed Nursing Documentation-PMH Hx Cardiac Problems: No Hx Cancer: No Hx Gastrointestinal Problems: No Hx Neurological Problems: Yes Hx Seizures: Yes Hx Dizziness: Yes Review of Systems Constitutional: Denies: chills, fever Eye: Denies: blurred vision, double vision ENT: Denies: throat pain, nasal discharge Respiratory: Denies: cough, shortness of breath Cardiovascular: Denies: chest pain, palpitations Gastrointestinal: Denies: abdominal pain, diarrhea, nausea, vomiting Genitourinary: Denies: dysuria, pain Musculoskeletal: Denies: back pain, muscle pain Skin: Denies: rash, lesions Neurological: Reports: headache, seizure; Denies: focal weakness Hematologic/Lymphatic: Denies: easy bleeding, easy bruising All Other Systems: negative except mentioned in HPI Physical Exam Sp02 EP Interpretation: reviewed, normal General Appearance: well appearing, no apparent distress, alert Head: normocephalic, atraumatic Eyes: bilateral eye PERRL, bilateral eye EOMI ENT: uvula midline, dry mucus membranes Neck: supple, thyroid normal, supple/symm/no masses Respiratory: lungs clear, no respiratory distress, no retraction, no accessory muscle use Cardiovascular #1: normal peripheral pulses, regular rate, rhythm, no edema, no gallop, no murmur Gastrointestinal: non tender, soft, no guarding, no rebound Musculoskeletal: normal inspection Neurologic: alert, oriented x3 Psychiatric: mood/affect normal Skin: no rash, warm/dry Medical Decision Making Diagnostic Impression: Primary Impression: Epileptic seizure, generalized Additional Impression: Seizure disorder ER Course Patient's Trileptal dose was reduced by his primary care doctor, will provide patient with a new prescription for Trileptal, 900 mg p.o. twice daily, seizure medications were given in the ED, patient at baseline, he is calling his brother for pickup, on the differential is seizure, noncompliance, electrolyte imbalance. Patient with slightly elevated creatinine from baseline, may be secondary to seizure, patient a little dry, more likely be related to prerenal, patient with dry mucous membranes Patient at baseline, USMAN short prescription of Trileptal was given, patient must follow-up with his neurologist at [facility] Laboratory Tests Test 03/12/19 12:13 Sodium Level 141 MMOL/L (136-145) Potassium Level 3.6 MMOL/L (3.5-5.1) Chloride Level 102 MMOL/L (98-107) Carbon Dioxide Level 15 MMOL/L (21-32) L Anion Gap 24 mmol/L (5-15) H Blood Urea Nitrogen 14 mg/dL (7-18) Creatinine 1.5 MG/DL (0.55-1.30) H Estimate Glomerular Filtration Rate > 60 mL/min (>60) Glucose Level 125 MG/DL (74-106) H Calcium Level 9.2 MG/DL (8.5-10.1) Rhythm Strip Diag. Results Rhythm Strip Time: 13:15 EP Interpretation: yes Rate: 76 Rhythm: NSR, no PVC's, no ectopy Disposition: HOME, SELF-CARE Condition: Improved Scripts Oxcarbazepine (TRILEPTAL) 300 Mg Tablet 900 MG PO BID, #30 TAB Prov: Efren Ashby M.D. 03/12/19 Referrals: [facility] + [facility] Patient Instructions: Seizure, Adult Additional Instructions: The patient was provided with discharge instructions, notified to follow-up with a primary care doctor and or specialist in the next 24-48 hours, and to return to the ED if they have worsening of their symptoms. Please note that this report is being documented using [employer] technology. This can lead to erroneous entry secondary to incorrect interpretation by the dictating instrument. Efren Ashby M.D. Mar 12, 2019 12:10
[2019-03-12] MEDS ORDERED: OXcarbazepine 150mg tab ORAL ONE (12:15)
[2019-03-12 12:16] VITALS: BP 125/64
--- NOTE | 2019-03-12 12:16 | NUR ---
ED Nurse Note: PT BROUGHT IN BY RA 29 DUE TO SEIZURE ACTIVITY. PER EMS, PT WAS WITNESSED HAVING A TONIC CLONIC SEIZURE BY A FAMILY MEMBER IN A GARAGE OF A HOUSE. PT IS REPORTED TO BE COMPLIANT WITH HIS MEDS KEPPRA AND TRILEPTAL. AAO X4, FOLLOWS COMMANDS WITH UNLABORED BREATHING. VSS. SEIZURE PADS APPLIED WITH BED IN LOWEST LOCKED POSITION.
--- NOTE | 2019-03-12 12:25 | NUR ---
ED Nurse Note: BLOOD SPECIMEN SENT.
[2019-03-12 12:46] LABS: ANION GAP 24 mmol/L (5-15); BLOOD UREA NITROGEN 14 mg/dL (7-18); CALCIUM 9.2 MG/DL (8.5-10.1); CARBON DIOXIDE 15 MMOL/L (21-32); CHLORIDE 102 MMOL/L (98-107); CREATININE 1.5 MG/DL (0.55-1.30); POTASSIUM 3.6 MMOL/L (3.5-5.1); SODIUM 141 MMOL/L (136-145)
[2019-03-12] MEDS ORDERED: Acetaminophen 500mg (ES) tab ORAL ONE (13:15)
[2019-03-12 13:30] VITALS: BP 128/70
[2019-03-12 14:00] VITALS: BP 107/54
--- NOTE | 2019-03-12 14:00 | NUR ---
ER DISCHARGE NOTE: Patient is cleared to be discharged per ERMD, pt is aox4, on room air, with stable vital signs. pt was given dc and prescription instructions, pt was able to verbalize understanding, pt id band and iv site removed without complications. pt is able to ambulate with steady gait. pt took all belongings and left with his .
== END 2019-03-12 14:00 | disposition home or self-care (01) ==
LOC: EDBD 12:04 → EMR 12:30
DX: G40.909 Epilepsy, unspecified, not intractable, without status epilepticus (principal)
CPT/HCPCS: 36415; 80048; 80299; 96360; 99284

== ENCOUNTER 2019-04-06 18:23 | Emergency (ER) | payer MEDICAID ==
[~2019-04-06] VITALS: Ht 172.7 cm; Wt 75.7 kg
[~2019-04-06 18:23] MED LIST changes: +TRILEPTAL300 MG PO
--- NOTE | 2019-04-06 18:38 | NUR ---
ED Nurse Note: PT BROUGHT IN TO ER TODAY BY [facility]ILBUR FROM A PARKING LOT AFTER PT HAD A WITNESSED SEIZURE. PER EMS, NO HEAD TRAUMA OR LOC. PT STATES HE HAS HX OF SEIZURES - LAST SEIZURE 1 MONTH AGO. PT STATES HE IS COMPLIANT WITH MEDICATIONS AND HAS AN APPOINTMENT WITH HIS NEUROLOGIST COMING UP LATER THIS MONTH. NO SIGNS OF RESPIRATORY DISTRESS. AIRWAY PATENT. SEIZURE PROTOCOL IN PLACE.
[2019-04-06 18:40] VITALS: BP 126/65
--- NOTE | 2019-04-06 18:58 | NUR ---
HAND-OFF: REPORT GIVEN TO YAZMIN PAEZ.
[2019-04-06] MEDS ORDERED: OXcarbazepine 150mg tab ORAL ONE (19:00)
--- NOTE | 2019-04-06 19:08 | NUR ---
ED Nurse Note: Patient went down for CT
[2019-04-06] MEDS ORDERED: Acetaminophen 500mg (ES) tab ORAL ONE (19:15)
--- NOTE | 2019-04-06 19:15 | NUR ---
ED Nurse Note: Patient is back, VSS at this timne, no acute distress noticed.
[2019-04-06 19:22] LABS: HEMATOCRIT 45.2 % (42.0-52.0); HEMOGLOBIN 15.2 G/DL (14.2-18.0); MEAN CORPUSCULAR VOLUME 91 FL (80-99); PLATELET COUNT 273 K/UL (150-450); RED BLOOD COUNT 4.97 M/UL (4.70-6.10); RED CELL DISTRIBUTION WIDTH 11.7 % (11.6-14.8); WHITE BLOOD COUNT 10.4 K/UL (4.8-10.8)
--- NOTE | 2019-04-06 19:33 | Diagnostic Imaging Report ---
Indications: Seizure Technique: Spiral acquisitions obtained through the brain. Angled axial and coronal 5 x 5 mm slices were reconstructed. Total dose length product 1442.94 mGycm. CTDI vol(s) 70.38 mGy. Dose reduction achieved using automated exposure control Comparison: 12/05/2018 Findings: No acute intracranial hemorrhage or edema, mass effect, or midline shift demonstrated. Normal size ventricles and extra axial CSF spaces. Visualized orbits and sinuses are unremarkable. The calvarium is intact. The knight-white differentiation is preserved. Impression: Negative This agrees with the preliminary interpretation provided overnight by [facility] teleradiology service. The CT scanner at [facility] is accredited by the [employer] and the scans are performed using protocols designed to limit radiation exposure to as low as reasonably achievable to attain images of sufficient resolution adequate for diagnostic evaluation.
[2019-04-06 19:36] LABS: ANION GAP 24 mmol/L (5-15); BLOOD UREA NITROGEN 11 mg/dL (7-18); CALCIUM 8.9 MG/DL (8.5-10.1); CARBON DIOXIDE 13 MMOL/L (21-32); CHLORIDE 102 MMOL/L (98-107); CREATININE 1.4 MG/DL (0.55-1.30); POTASSIUM 3.6 MMOL/L (3.5-5.1); SODIUM 139 MMOL/L (136-145)
[2019-04-06 19:41] LABS: ALANINE AMINOTRANSFERASE 20 U/L (12-78); ALBUMIN 4.4 G/DL (3.4-5.0); ALBUMIN/GLOBULIN RATIO 1.3 (1.0-2.7); ALKALINE PHOSPHATASE 81 U/L (46-116); ASPARTATE AMINO TRANSFERASE 14 U/L (15-37); BILIRUBIN,TOTAL 0.3 MG/DL (0.2-1.0)
[2019-04-06] MEDS ORDERED: Ketorolac 30mg Inj IV ONE (20:30)
[2019-04-06] MEDS ORDERED: IBUPROFEN600 MG ORAL (21:00)
--- NOTE | 2019-04-06 21:21 | Emergency Room Report ---
History of Present Illness General Chief Complaint: Seizure Source: Patient Present Illness HPI 33-year-old male presents ED for evaluation. Brought in by EMS status post seizure. Witnessed seizure in parking lot. Reported head injury. Patient notes history of seizure. States he takes Keppra and Trileptal. States he is compliant with his medications. Admits to marijuana use. Complains of headache with nausea. Pain is throbbing, 7 out of 10, nonradiating. Denies fevers or chills. Denies photophobia or blurry vision. Denies neck stiffness. No other aggravating relieving factors. Denies any other associated symptoms Allergies: Coded Allergies: No Known Allergies (Unverified , 09/09/18) Patient History Past Medical History: seizures Past Surgical History: none Pertinent Family History: none Social History: Reports: drug use; Denies: smoking, alcohol use Immunizations: UTD Reviewed Nursing Documentation: PMH: Agreed; PSxH: Agreed Nursing Documentation-PMH Hx Cardiac Problems: No Hx Cancer: No Hx Gastrointestinal Problems: No Hx Neurological Problems: Yes Hx Seizures: Yes Hx Dizziness: Yes Review of Systems All Other Systems: negative except mentioned in HPI Physical Exam Vital Signs Date Time Temp Pulse Resp B/P (MAP) Pulse Ox O2 Delivery O2 Flow Rate FiO2 04/06/19 18:33 98.2 100 16 134/84 (101) 98 Room Air Sp02 EP Interpretation: reviewed, normal General Appearance: no apparent distress, alert, GCS 15, non-toxic Head: normocephalic, atraumatic Eyes: bilateral eye normal inspection, bilateral eye PERRL ENT: hearing grossly normal, normal pharynx, no angioedema, normal voice Neck: full range of motion, supple, no meningismus, no bony tend, supple/symm/ no masses Respiratory: chest non-tender, lungs clear, normal breath sounds, speaking full sentences Cardiovascular #1: regular rate, rhythm, no edema Cardiovascular #2: 2+ carotid (R), 2+ carotid (L), 2+ radial (R), 2+ radial (L) , 2+ dorsalis pedis (R), 2+ dorsalis pedis (L) Gastrointestinal: normal bowel sounds, non tender, soft, non-distended, no guarding, no rebound Rectal: deferred Genitourinary: normal inspection, no CVA tenderness Musculoskeletal: back normal, gait/station normal, normal range of motion, non- tender Neurologic: alert, oriented x3, responsive, motor strength/tone normal, sensory intact, speech normal Psychiatric: judgement/insight normal, memory normal, mood/affect normal, no suicidal/homicidal ideation Reflexes: 3+ bicep (R), 3+ bicep (L), 3+ tricep (R), 3+ tricep (L), 3+ knee (R) , 3+ knee (L) Lymphatic: no adenopathy Medical Decision Making Diagnostic Impression: Primary Impression: Seizure ER Course Hospital Course 33 yo M presents to ED s/p seizure. Differential diagnosis includes- breakthrough seizure, alcohol abuse, noncompliance with medication Clinical course Patient placed on stretcher. Initial history and physical I ordered labs, IV fluids, Keppra, Trileptal, CT brain Labs-electrolytes okay, no leukocytosis, hemoglobin/hematocrit stable. CT Brain ok Patient allowed to rest is now awake alert oriented x3. ambulating without difficulty. discussed findings with patient. Explained that marijuana can lower the seizure threshold. States that he will follow-up with his PMD. states that he has his medication at home. DMV form submitted Diagnosis - seizure disorder stable and discharged to home. Followup with PMD. Return to ED if symptoms recur or worsen Labs Test 04/06/19 18:47 White Blood Count 10.4 K/UL (4.8-10.8) Red Blood Count 4.97 M/UL (4.70-6.10) Hemoglobin 15.2 G/DL (14.2-18.0) Hematocrit 45.2 % (42.0-52.0) Mean Corpuscular Volume 91 FL (80-99) Mean Corpuscular Hemoglobin 30.7 PG (27.0-31.0) Mean Corpuscular Hemoglobin Concent 33.7 G/DL (32.0-36.0) Red Cell Distribution Width 11.7 % (11.6-14.8) Platelet Count 273 K/UL (150-450) Mean Platelet Volume 6.3 FL (6.5-10.1) Neutrophils (%) (Auto) % (45.0-75.0) Lymphocytes (%) (Auto) % (20.0-45.0) Monocytes (%) (Auto) % (1.0-10.0) Eosinophils (%) (Auto) % (0.0-3.0) Basophils (%) (Auto) % (0.0-2.0) Differential Total Cells Counted 100 Neutrophils % (Manual) 27 % (45-75) Lymphocytes % (Manual) 63 % (20-45) Monocytes % (Manual) 9 % (1-10) Eosinophils % (Manual) 1 % (0-3) Basophils % (Manual) 0 % (0-2) Band Neutrophils 0 % (0-8) Platelet Estimate Adequate Platelet Morphology Normal Red Blood Cell Morphology Normal Sodium Level 139 MMOL/L (136-145) Potassium Level 3.6 MMOL/L (3.5-5.1) Chloride Level 102 MMOL/L (98-107) Carbon Dioxide Level 13 MMOL/L (21-32) Anion Gap 24 mmol/L (5-15) Blood Urea Nitrogen 11 mg/dL (7-18) Creatinine 1.4 MG/DL (0.55-1.30) Estimat Glomerular Filtration Rate > 60 mL/min (>60) Glucose Level 115 MG/DL (74-106) Calcium Level 8.9 MG/DL (8.5-10.1) Total Bilirubin 0.3 MG/DL (0.2-1.0) Aspartate Amino Transf (AST/SGOT) 14 U/L (15-37) Alanine Aminotransferase (ALT/SGPT) 20 U/L (12-78) Alkaline Phosphatase 81 U/L (46-116) Total Protein 7.9 G/DL (6.4-8.2) Albumin 4.4 G/DL (3.4-5.0) Globulin 3.5 g/dL Albumin/Globulin Ratio 1.3 (1.0-2.7) Salicylates Level 5.0 ug/mL (2.8-20) Acetaminophen Level < 2 MCG/ML (10-30) Serum Alcohol < 3 mg/dL CT/MRI/US Diagnostic Results CT/MRI/US Diagnostic Results : Imaging Test Ordered: CT Head Impression no acute process Last Vital Signs Date Time Temp Pulse Resp B/P (MAP) Pulse Ox O2 Delivery O2 Flow Rate FiO2 04/06/19 19:51 98.4 04/06/19 18:40 92 21 Room Air 04/06/19 18:40 126/65 97 Status: improved Disposition: HOME, SELF-CARE Condition: Stable Scripts Ibuprofen* (MOTRIN*) 600 Mg Tablet 600 MG ORAL Q8H PRN for For Pain, #30 TAB 0 Refills Prov: Phil Roche MD 04/06/19 Referrals: [facility],REFERRING (PCP) Patient Instructions: Seizure, Adult Phil Roche MD Apr 06, 2019 21:21
[2019-04-06 22:01] VITALS: BP 117/65
[2019-04-06 22:54] VITALS: BP 133/75
--- NOTE | 2019-04-06 22:55 | NUR ---
ER DISCHARGE NOTE: Patient is cleared to be discharged per ERMD, pt is aox4, on room air, with stable vital signs. pt was given dc and prescription instructions, pt was able to verbalize understanding, pt id band and iv site removed without complications. pt is able to ambulate with steady gait. pt took all belongings.
== END 2019-04-06 22:55 | disposition home or self-care (01) ==
LOC: EDBD 18:23 → EMR 18:54
DX: G40.909 Epilepsy, unspecified, not intractable, without status epilepticus (principal); F12.90 Cannabis use, unspecified, uncomplicated; R51 Headache; R11.0 Nausea
CPT/HCPCS: 36415; 70450; 80053; 80299; 80329; 85007; 85025; 96361; 96374; 99284; J1885

== ENCOUNTER 2019-04-22 14:50 | Emergency (ER) | payer MEDICAID ==
[~2019-04-22] VITALS: Ht 172.7 cm; Wt 77.1 kg
[~2019-04-22 14:50] MED LIST changes: +IBUPROFEN600 MG ORAL
[2019-04-22 15:00] VITALS: BP 131/82
[2019-04-22] MEDS ORDERED: levETIRAcetam 500 MG in D5W 110 ML IV ONE (15:00)
[2019-04-22] MEDS ORDERED: Ketorolac 30mg Inj IV ONE (15:00)
[2019-04-22] MEDS ORDERED: LORazepam Inj 2mg/ml 1ml IV ONE (15:00)
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
[2019-04-22 15:40] LABS: CHLORIDE 105 MMOL/L (98-107); POTASSIUM 3.7 MMOL/L (3.5-5.1)
[2019-04-22 15:45] LABS: HEMATOCRIT 40.1 % (42.0-52.0); HEMOGLOBIN 14.5 G/DL (14.2-18.0); MEAN CORPUSCULAR VOLUME 89 FL (80-99); PLATELET COUNT 299 K/UL (150-450); RED BLOOD COUNT 4.51 M/UL (4.70-6.10); RED CELL DISTRIBUTION WIDTH 11.5 % (11.6-14.8); WHITE BLOOD COUNT 6.6 K/UL (4.8-10.8)
[2019-04-22 15:49] LABS: ANION GAP 18 mmol/L (5-15); BLOOD UREA NITROGEN 16 mg/dL (7-18); CALCIUM 8.9 MG/DL (8.5-10.1); CARBON DIOXIDE 18 MMOL/L (21-32); CREATININE 1.2 MG/DL (0.55-1.30); SODIUM 141 MMOL/L (136-145)
[2019-04-22 15:53] LABS: ALANINE AMINOTRANSFERASE 26 U/L (12-78); ALBUMIN 4.2 G/DL (3.4-5.0); ALBUMIN/GLOBULIN RATIO 1.2 (1.0-2.7); ALKALINE PHOSPHATASE 67 U/L (46-116); ASPARTATE AMINO TRANSFERASE 17 U/L (15-37); BILIRUBIN,TOTAL 0.2 MG/DL (0.2-1.0); CREATINE KINASE 132 U/L (26-308)
--- NOTE | 2019-04-22 15:54 | Diagnostic Imaging Report ---
Indication: Dyspnea Comparison: 12/05/2018 A single view chest radiograph was obtained. Findings: Cardiomediastinal appearance is within normal limits for age. The lungs are clear. Pulmonary vascularity is appropriate. The diaphragmatic contour is smooth and costophrenic angles are sharp. No pleural effusions are identified. The bones are unremarkable. Impression: No acute findings
[2019-04-22] MEDS ORDERED: KEPPRA500 M4 ORAL (17:08)
--- NOTE | 2019-04-22 17:23 | NUR ---
HAND-OFF: Report given to YAZMIN Iyer and endorsed care.
[2019-04-22 17:39] LABS: APPEARANCE,URINE CLEAR; BILIRUBIN, URINE NEGATIVE (NEGATIVE); COLOR,URINE PALE YELLOW; GLUCOSE, URINE (UA) NEGATIVE (NEGATIVE); KETONES,URINE 1+ (NEGATIVE); LEUKOCYTE ESTERASE ,URINE NEGATIVE (NEGATIVE); NITRITE,URINE NEGATIVE (NEGATIVE); PH,URINE 5 (4.5-8.0); PROTEIN,URINE 2+ (NEGATIVE); UROBILINOGEN,URINE NORMAL MG/DL (0.0-1.0)
[2019-04-22 18:45] VITALS: BP 126/85
--- NOTE | 2019-04-22 18:45 | NUR ---
Homeless Discharge: Patient is being discharged from medical care. Awake, alert and oriented x4. After care instructions, including referral to community resources were given. Patient verbalized understanding of After care instructions; at this time patient does not request medications, equipment or placement. Patient signed patient consent in the medical record for patient destination upon discharge. All medical devices such as IV and ID band were removed. Food and new clothes and bus tokens were provided Patient ambulated out with all personal belongings with steady gait.
== END 2019-04-22 18:45 | disposition home or self-care (01) ==
LOC: EDBD 14:50 → EMR 15:10
DX: G40.409 Other generalized epilepsy and epileptic syndromes, not intractable, without status epilepticus (principal); Z91.14 Patient's other noncompliance with medication regimen
CPT/HCPCS: 36415; 71045; 80053; 80307; 80329; 81003; 82550; 85025; 93005; 96361; 96374; 96375; 99284; J1885; J1953

== ENCOUNTER 2019-09-24 11:48 | Emergency (ER) | payer MEDICAID ==
[~2019-09-24] VITALS: Ht 172.7 cm; Wt 68.0 kg
[2019-09-24 11:50] VITALS: BP 127/60
--- NOTE | 2019-09-24 11:50 | NUR ---
ED Nurse Note: Pt BIBA d/t episode of seizure witnessed friend with 3-4 minutes duration. Pt denies pain at this time. Pt is AOx3, lethargic. Per laboratory technologist, pt has hx of epilepsy. Pt is urinary incontinent. Latest temp is 98.4F. Placed on bed; hooked to threat monitoring analyst.
--- NOTE | 2019-09-24 11:56 | Emergency Room Report ---
History of Present Illness General Chief Complaint: Seizure Source: Patient, EMS Present Illness HPI Patient is a 33-year-old male presents after witnessed seizure. Patient a prior history of seizure disorder. He was brought in by EMS. He had previously been on Keppra. Previous ER visits for similar symptoms in the past. Allergies: Coded Allergies: No Known Allergies (Unverified , 09/24/19) Patient History Past Medical History: seizures Reviewed Nursing Documentation: PMH: Agreed; PSxH: Agreed Nursing Documentation-PMH Hx Cancer: No Hx Gastrointestinal Problems: No Hx Neurological Problems: Yes Hx Seizures: Yes Hx Dizziness: Yes Review of Systems All Other Systems: negative except mentioned in HPI Physical Exam Vital Signs Date Time Temp Pulse Resp B/P (MAP) Pulse Ox O2 Delivery O2 Flow Rate FiO2 09/24/19 11:49 98.4 100 22 127/60 (82) 99 Room Air Sp02 EP Interpretation: reviewed, normal General Appearance: normal inspection, well appearing, no apparent distress, alert, GCS 15 Head: atraumatic ENT: normal ENT inspection, hearing grossly normal, normal voice Neck: normal inspection, full range of motion, supple, no bony tend Respiratory: normal inspection, lungs clear, normal breath sounds, no respiratory distress, no retraction, no wheezing Cardiovascular #1: regular rate, rhythm, no edema Gastrointestinal: normal inspection, normal bowel sounds, non tender, soft, no guarding, no hernia Genitourinary: no CVA tenderness Musculoskeletal: normal inspection, back normal, normal range of motion Neurologic: alert, motor strength/tone normal, level vial curvature gauger III-XII nml as tested, oriented x3, responsive, speech normal, normal inspection Psychiatric: normal inspection, judgement/insight normal, mood/affect normal Medical Decision Making Diagnostic Impression: Primary Impression: Seizure Additional Impression: Seizure disorder ER Course Patient presented for seizure. Differential diagnosis include was not limited to breakthrough seizure, medication noncompliance, alcohol withdrawal among others. Because of complexity of patient's case laboratory tests were ordered. He reportedly had prior history of seizure disorder. He had apparently run out of his seizure medications which include Trileptal as well as Keppra. He had recently had his dose was increased due to persistent seizures. Patient given refills of medications and loaded with IV Keppra in the emergency department. At the time of discharge patient was awake alert and ambulatory without assistance. He is capable of self-care. Patient advised to follow-up with his neurologist for recheck. He is advised to return if worse. The patient is advised to follow up with primary care doctor in 1-2 days. Patient is advised to return if any worsening condition or if any changes in status that are concerning. This report is dictated with The [employer] supervisor computer operations software which may occasionally lead to discrepancies related to use of this software. Labs Test 09/24/19 12:10 White Blood Count 10.0 K/UL (4.8-10.8) Red Blood Count 4.81 M/UL (4.70-6.10) Hemoglobin 15.1 G/DL (14.2-18.0) Hematocrit 44.9 % (42.0-52.0) Mean Corpuscular Volume 93 FL (80-99) Mean Corpuscular Hemoglobin 31.4 PG (27.0-31.0) Mean Corpuscular Hemoglobin Concent 33.6 G/DL (32.0-36.0) Red Cell Distribution Width 11.9 % (11.6-14.8) Platelet Count 324 K/UL (150-450) Mean Platelet Volume 6.7 FL (6.5-10.1) Neutrophils (%) (Auto) % (45.0-75.0) Lymphocytes (%) (Auto) % (20.0-45.0) Monocytes (%) (Auto) % (1.0-10.0) Eosinophils (%) (Auto) % (0.0-3.0) Basophils (%) (Auto) % (0.0-2.0) Differential Total Cells Counted 100 Neutrophils % (Manual) 28 % (45-75) Lymphocytes % (Manual) 66 % (20-45) Monocytes % (Manual) 4 % (1-10) Eosinophils % (Manual) 0 % (0-3) Basophils % (Manual) 1 % (0-2) Band Neutrophils 1 % (0-8) Platelet Estimate Adequate Platelet Morphology Normal Red Blood Cell Morphology Normal Sodium Level 142 MMOL/L (136-145) Potassium Level 3.6 MMOL/L (3.5-5.1) Chloride Level 102 MMOL/L (98-107) Carbon Dioxide Level 14 MMOL/L (21-32) Anion Gap 26 mmol/L (5-15) Blood Urea Nitrogen 16 mg/dL (7-18) Creatinine 1.6 MG/DL (0.55-1.30) Estimat Glomerular Filtration Rate 59.9 mL/min (>60) Glucose Level 154 MG/DL (74-106) Calcium Level 8.9 MG/DL (8.5-10.1) Total Bilirubin 0.3 MG/DL (0.2-1.0) Aspartate Amino Transf (AST/SGOT) 16 U/L (15-37) Alanine Aminotransferase (ALT/SGPT) 25 U/L (12-78) Alkaline Phosphatase 69 U/L (46-116) Total Protein 8.4 G/DL (6.4-8.2) Albumin 4.4 G/DL (3.4-5.0) Globulin 4.0 g/dL Albumin/Globulin Ratio 1.1 (1.0-2.7) Last Vital Signs Date Time Temp Pulse Resp B/P (MAP) Pulse Ox O2 Delivery O2 Flow Rate FiO2 09/24/19 11:49 98.4 100 22 127/60 (82) 99 Room Air Status: improved Disposition: ADMITTED INPATIENT Condition: Stable Scripts Levetiracetam (KEPPRA) 1,000 Mg Tablet 1000 MG ORAL BID, #30 TAB 0 Refills Prov: Gonzalo Betancourt MD 09/24/19 Oxcarbazepine (TRILEPTAL) 300 Mg Tablet 300 MG PO BID, #30 TAB Prov: Gonzalo Betancourt MD 09/24/19 Gonzalo Betancourt MD Sep 24, 2019 11:56
[2019-09-24] MEDS ORDERED: levETIRAcetam 1,000mg/NS100ml 100 ML IVPB ONE (12:00)
[2019-09-24] MEDS ORDERED: Ketorolac 30mg Inj IV ONE (13:00)
[2019-09-24 13:21] LABS: HEMATOCRIT 44.9 % (42.0-52.0); HEMOGLOBIN 15.1 G/DL (14.2-18.0); MEAN CORPUSCULAR VOLUME 93 FL (80-99); PLATELET COUNT 324 K/UL (150-450); RED BLOOD COUNT 4.81 M/UL (4.70-6.10); RED CELL DISTRIBUTION WIDTH 11.9 % (11.6-14.8)
[2019-09-24 13:24] LABS: ANION GAP 26 mmol/L (5-15); BLOOD UREA NITROGEN 16 mg/dL (7-18); CALCIUM 8.9 MG/DL (8.5-10.1); CARBON DIOXIDE 14 MMOL/L (21-32); CHLORIDE 102 MMOL/L (98-107); CREATININE 1.6 MG/DL (0.55-1.30); POTASSIUM 3.6 MMOL/L (3.5-5.1); SODIUM 142 MMOL/L (136-145)
[2019-09-24 13:27] LABS: ALANINE AMINOTRANSFERASE 25 U/L (12-78); ALBUMIN 4.4 G/DL (3.4-5.0); ALBUMIN/GLOBULIN RATIO 1.1 (1.0-2.7); ALKALINE PHOSPHATASE 69 U/L (46-116); ASPARTATE AMINO TRANSFERASE 16 U/L (15-37); BILIRUBIN,TOTAL 0.3 MG/DL (0.2-1.0)
[2019-09-24] MEDS ORDERED: KEPPRA750 MG ORAL ×2 (13:34)
[2019-09-24 14:00] VITALS: BP 116/62
--- NOTE | 2019-09-24 14:00 | NUR ---
ED Nurse Note: Pt complained of 10/10 pain scale on head, toradol IV given on IV site. VSS, on RA. Will continue to monitor.
[2019-09-24] MEDS ORDERED: TRILEPTAL300 MG PO (14:47)
[2019-09-24] MEDS ORDERED: KEPPRA1000 MG ORAL (14:50)
[2019-09-24 15:10] VITALS: BP 116/62
== END 2019-09-24 15:10 | disposition home or self-care (01) ==
LOC: EDBD 11:48 → EMR 12:40
DX: G40.909 Epilepsy, unspecified, not intractable, without status epilepticus (principal)
CPT/HCPCS: 36415; 80053; 85007; 85025; 96361; 96374; 96375; J1885; J1953; Z7502; 99285; J7030